=== PATIENT | male | born 1945 | race Caucasian/White ===

== ENCOUNTER → 2018-09-25 | Day surgery (SDC) | payer MEDICARE ==
--- NOTE | 2018-09-22 16:20 | Diagnostic Imaging Report ---
EXAMINATION: PA and lateral views of the chest. COMPARISON: None CLINICAL HISTORY: Preoperative study for orthopedic procedure DISCUSSION: Lines/tubes: None. Lungs: Calcified granuloma right midlung. Lungs are otherwise well-inflated and without focal consolidation, pleural effusion, or pneumothorax. Pleura: There is no pleural effusion or pneumothorax. Heart and mediastinum: The cardiomediastinal silhouette is normal. Bones and soft tissues: No acute bony abnormalities. 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 Degenerative changes in the thoracic spine IMPRESSION: No acute cardiopulmonary abnormalities. Signed by: Dr. Ashu Levine M.D. on 09/22/2018 4:17 PM
[2018-09-22 16:39] LABS: BASOPHILS # (AUTO) 0.1 (0.0-0.1); BASOPHILS % 0.5 % (0.0-1.0); EOSINOPHILS # (AUTO) 0.4 (0.0-0.4); EOSINOPHILS % 2.4 % (0.0-6.0); HEMATOCRIT 34.1 % (38.2-49.6); HEMOGLOBIN 10.9 g/dL (14.0-18.0); LYMPHOCYTES # (AUTO) 13.5 (1.0-3.2); LYMPHOCYTES % 75.2 % (18.0-39.1); MEAN CORPUSCULAR HEMOGLOBIN 29.6 pg (28-32); MEAN CORPUSCULAR VOLUME 92.7 fL (81-99); MONOCYTES # (AUTO) 0.8 (0.2-0.8); MONOCYTES % 4.6 % (4.4-11.3); NEUTROPHILS # (AUTO) 3.1 (2.1-6.9); NEUTROPHILS % 17.1 % (38.7-80.0); PLATELET COUNT 366 x10e3/uL (140-360); RED BLOOD COUNT 3.68 x10e6/uL (4.3-5.7); RED CELL DISTRIBUTION WIDTH 14.4 % (11.7-14.4)
[2018-09-22 21:03] LABS: EOSINOPHILS % (MANUAL) 3 % (0-7); LYMPHOCYTES % (MANUAL) 63 % (19-48); MONOCYTES % (MANUAL) 1 % (3.4-9.0); NEUTROPHILS % (MANUAL) 28 % (40-74); PLATELET ESTIMATE ADEQUATE; PLATELET MORPHOLOGY COMMENT NORMAL; RBC MORPHOLOGY COMMENT NORMAL; SMUDGE CELLS MODERATE
[~2018-09-25] MED LIST: AMLODIPINE BESYL5 MG PO; ASPIR 8181 MG PO; BUPIVACAINE HCL 0.5% INJ 30 ML VIAL INJ ONE; CALCIUM CARBON500 MG PO; CALCIUM500 MG PO; CITALOPRAM HBR20 MG PO; FISH OIL 1,0001 EAC2 PO; HYDROMORPHONE 2MG/ML 2 MG/ML ML ONE; IOPAMIDOL 610MG/1ML 300 MG/ML VIAL IV ONE; LIDOCAINE HCL 1% LOCAL INJ 20 ML VIAL ONE; MELOXICAM7.5 MG PO; METHOCARBAMOL PO; MIDAZOLAM HCL 2 MG/2 ML VIAL ONE; MORPHINE SULFAT30 M2 PO; MORPHINE SULFATE INJ 10 MG/ML ONE; MULTIVITAMINS1 EAC6 PO; NORCO 10-325 T1 EACH PO; OMEGA-31000 MG PO; PROPOFOL IV EMULSION 10 MG/ML 20 ML VIAL ONE; RIVAROXABAN PO; TRIAMCINOLONE ACET 40 MG/ML VIAL ONE; VITAMIN D400 UNIT PO; XARELTO20 MG PO
--- OUTSIDE RECORDS SUMMARY | 2018-09-25 05:11 | XMS REPORT ---
Author [facility] Address Unknown Phone Unavailable Care Team Providers Care Chemist Biological Name Role Phone FORTINO MORENO Unavailable Unavailable Payers Payer Name Policy Type Policy Number Effective Date Expiration Date Problems This patient has no known problems. Allergies, Adverse Reactions, Alerts Allergy Name Allergy Type Status Severity Reaction(s) Onset Date Inactive Date Treating Clinician Comments penicillin DA Active U 2018-05-11 00:00:00 penicillin DA Active U 2015-03-04 00:00:00 Medications This patient has no known medications. Results Test Description Test Time Test Comments Text Results Atomic Results Result Comments CHEST 2 VIEWS 2018-09-22 16:15:00 [place] [address] Patient Name: VERONIQUE SIMMONS MR #: [id number] : 1945 Age/Sex: 73/M Req #: [id number] Adm Physician: Ordered by: FORTINO MORENO MD Report #: [id number] Location: OR Room/Bed: Procedure: [id number] DX/CHEST 2 VIEWS Exam Date: 09/22/18 Exam Time: 1600 REPORT STATUS: Signed EXAMINATION: PA and lateral views of the chest. DOREEN RISON: None CLINICAL HISTORY: Preoperative study for orthopedic procedure DISCUSSION: Lines/tubes: None. Lungs: Calcified granuloma right midlung. Lungs are otherwise well-inflated and without focal consolidation, pleural effusion, or pneumothorax. Pleura: There is no pleural effusion or pneumothorax. Heart and mediastinum: The cardiomediastinal silhouette is normal. Bones and soft tissues: No acute bony abnormalities. 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 Degenerative changes in the thoracic spine IMPRESSION: No acute cardi opulmonary abnormalities. Signed by: Dr. Fortino Vanessa M.D. on 09/22/2018 4:17 PM Dictated By: FORTINO VANESSA MD [id number] Transcribed By: CASSIE on 09/22/18 6613 COPY TO: FORTINO MORENO MD
[2018-09-25 07:45] VITALS: BP 123/70
[2018-09-25 10:50] LABS: BODY FLUID COLOR RED
[2018-09-25 10:51] LABS: RBC,BODY FLUID 2129 cells/uL; WBC,BODY FLUID 50 cells/uL
[2018-09-25 10:59] LABS: EOSINOPHILS,BODY FLUID 5 %; LYMPHOCYTES,BODY FLUID 76 %; NEUTROPHILS,BODY FLUID 10 %; OTHER CELLS,BODY FLUID 4 %
[2018-09-25 11:18] LABS: MONO/MACROPHG,BODY FLUID 5 %
--- NOTE | 2018-09-25 12:27 | Operative Report ---
DATE OF PROCEDURE: 09/25/2018 SURGEON: Ashu Mims MD PREOPERATIVE DIAGNOSIS: Complications pertaining to left hip prosthesis. POSTOPERATIVE DIAGNOSIS: Complications pertaining to left hip prosthesis. PROCEDURE: Fluoroscopic guided left hip aspiration and injection. INDICATIONS: The patient is a 73-year-old gentleman, who has a painful left hip hemiarthroplasty. He has elevated inflammatory blood work. We plan on aspiration and possible injection. The risks and benefits have been discussed. He states he understands and wishes to proceed. PROCEDURE IN DETAIL: The patient was brought to the operating room and given a MAC anesthetic. His left hip was prepped and draped in a sterile manner. A preoperative time-out was performed. A C-arm image intensifier was used to pace an 18-gauge spinal needle into the hip joint. About 4 mL of blood-tinged synovial fluid was quickly removed. There was no alicja purulence. I elected to inject a mixture of Marcaine and 40 mg of Kenalog. The needle was retrieved and a Band-Aid was applied. He was transported to the recovery room in stable condition. Ashu Mims MD DR/MODL /[id number]
[2018-09-25 12:46] LABS: BODY FLUID APPEARANCE SL.CLOUDY; BODY FLUID TYPE SYNOVIAL
== END | disposition home or self-care (01) ==
LOC: OR 05:08
PROVIDERS: ATTEND Specialist
DX: T84.84XA Pain due to internal orthopedic prosthetic devices, implants and grafts, initial encounter (principal); Z96.642 Presence of left artificial hip joint; E78.5 Hyperlipidemia, unspecified; I10 Essential (primary) hypertension; C91.10 Chronic lymphocytic leukemia of B-cell type not having achieved remission; R60.0 Localized edema; I73.9 Peripheral vascular disease, unspecified; I25.2 Old myocardial infarction; Z01.810 Encounter for preprocedural cardiovascular examination; Z01.812 Encounter for preprocedural laboratory examination; Z01.818 Encounter for other preprocedural examination
CPT/HCPCS: 20610; 36415 ×2; 71046; 77002; 85025; 87070; 87071; 87075; 87102; 87205; 87206; 89051; 93005; J1170; J2250; J2270; J2704; J3301; Q9967; 27093; J2001

== ENCOUNTER 2018-11-07 06:20 | Inpatient (IN) | payer MEDICARE ==
[~2018-11-07] VITALS: Ht 175.3 cm; Wt 87.1 kg
[~2018-11-07 06:20] MED LIST changes: -BUPIVACAINE HCL 0.5% INJ 30 ML VIAL INJ ONE; -HYDROMORPHONE 2MG/ML 2 MG/ML ML ONE; -IOPAMIDOL 610MG/1ML 300 MG/ML VIAL IV ONE; -LIDOCAINE HCL 1% LOCAL INJ 20 ML VIAL ONE; -MIDAZOLAM HCL 2 MG/2 ML VIAL ONE; -MORPHINE SULFATE INJ 10 MG/ML ONE; -PROPOFOL IV EMULSION 10 MG/ML 20 ML VIAL ONE; -TRIAMCINOLONE ACET 40 MG/ML VIAL ONE; +VIT B12 PO
[2018-11-07] MEDS ORDERED: CELECOXIB 200 MG CAP ONE (07:02)
[2018-11-07] MEDS ORDERED: DEXAMETHASONE SOD PHOS 10 MG/1 ML VIAL ONE (07:02)
[2018-11-07] MEDS ORDERED: VANCOMYCIN 1GM/NS 250 ML 250 ML ONE (07:02)
[2018-11-07] MEDS ORDERED: GABAPENTIN 300 MG CAP ONE (07:02)
[2018-11-07] MEDS ORDERED: VANCOMYCIN HCL 1,000 MG ONE (07:09)
[2018-11-07] MEDS ORDERED: SODIUM CHLORIDE 0.9% 500ML 500 ML ONE (07:10)
[2018-11-07] MEDS ORDERED: TRANEXAMIC ACID 1,000 MG/10 ML ML ONE (07:10)
[2018-11-07] MEDS ORDERED: BACITRACIN 50,000 UNIT VIAL ONE (07:11)
[2018-11-07] MEDS ORDERED: ROPIVACAINE 246.25 MG, EPINEPHRINE HCL 1:1000 1ML 0.5 MG, CLONIDINE HCL 0.08 MG, KETORO... INJ ONE ×5 (08:00)
[2018-11-07] MEDS ORDERED: BUPIVACAINE HCL 0.5% INJ 30 ML VIAL INJ ONE (08:58)
[2018-11-07] MEDS: SODIUM CHLORIDE 0.9% 1000ML 1,000 ML IV SCH ×2 (10:51→21:07)
[2018-11-07] MEDS ORDERED: ACETAMINOPHEN 1000 MG/100 ML 100 ML IV ONE (10:57)
[2018-11-07] MEDS ORDERED: DOCUSATE SODIUM 100 MG CAP PO PRN (11:00)
[2018-11-07] MEDS ORDERED: ACETAMINOPHEN 650 MG SUPP PR PRN (11:00)
[2018-11-07] MEDS ORDERED: DIPHENHYDRAMINE HCL INJ 50 MG/ML VIAL IM/IV PRN (11:00)
[2018-11-07] MEDS ORDERED: ZOLPIDEM TARTRATE 5 MG TAB PO PRN (11:00)
[2018-11-07] MEDS ORDERED: PROMETHAZINE HCL (IM) 25 MG/ML VIAL INJ PRN (11:00)
[2018-11-07] MEDS ORDERED: ONDANSETRON HCL INJ 2MG/ML 2ML 2 MG/ML VIAL IV PRN (11:00)
[2018-11-07] MEDS ORDERED: HYDROCODONE/APAP 5MG-325MG TAB PO PRN (11:00)
[2018-11-07] MEDS: ACETAMINOPHEN 1000 MG/100 ML IV SCH ×4 (12:00→23:58)
--- NOTE | 2018-11-07 12:34 | NUR ---
pt alert resp even, and unlabored at this time no distress noted, pt arrive via stretcher, pt able to make needs known, pt has abductor pillow in place, pt oriented to room and call light, bed in lowest position, bed rails up x2. call light in reach.
[2018-11-07 12:43] VITALS: BP 119/77
[2018-11-07 12:52] VITALS: BP 119/77
--- NOTE | 2018-11-07 14:02 | Diagnostic Imaging Report ---
Exam: AP pelvis and single view of the left hip, portable technique. History: Hip surgery Comparison: None available Findings: Left femoral prosthesis present in good position. Surgical kamlesh and soft tissue air compatible with the recent surgery. Impression: Status post hip arthroplasty. Signed by: Dr. Yair Florentino DO on 11/07/2018 1:58 PM
[2018-11-07 15:48] LABS: RBC,BODY FLUID 27423 cells/uL; WBC,BODY FLUID 792 cells/uL
[2018-11-07 15:50] LABS: BODY FLUID APPEARANCE CLOUDY; BODY FLUID COLOR RED; BODY FLUID TYPE SYNOVIAL
[2018-11-07 16:05] VITALS: BP 118/70
[2018-11-07] MEDS: ASPIRIN 325 MG TAB PO SCH (17:05)
[2018-11-07] MEDS: CELECOXIB 100 MG CAP PO SCH (17:15)
[2018-11-07] MEDS: HYDROCODONE/APAP 7.5MG-325MG 1 EA TAB PO PRN (17:20)
[2018-11-07] MEDS ORDERED: EPHEDRINE SULFATE INJ 50 MG/10 ML SYR ONE (17:49)
[2018-11-07] MEDS ORDERED: PROPOFOL IV EMULSION 10 MG/ML 20 ML VIAL ONE (17:49)
[2018-11-07] MEDS ORDERED: LIDOCAINE HCL 2% LOCAL INJ 5 ML SDV VIAL INJ ONE (17:49)
[2018-11-07 18:19] LABS: LYMPHOCYTES,BODY FLUID 69 %; MONO/MACROPHG,BODY FLUID 15 %; NEUTROPHILS,BODY FLUID 14 %; OTHER CELLS,BODY FLUID 2 %
--- NOTE | 2018-11-07 19:21 | NUR ---
REPORT GIVEN TO ONCOMING NURSE, PT STABLE AT THIS TIME.
--- NOTE | 2018-11-07 19:23 | NUR ---
REPORT GIVEN TO ONCOMING NURSE, PT STABLE AT THIS TIME.
--- NOTE | 2018-11-07 19:25 | NUR ---
Received patient in bed in no acute distress, patient is alert and oriented, safety and fall precautions maintained as per hospital protocol: bed in lowest position and locked, needed items beside bed and call meza placed close to patient, patient is currently stable, will continue to monitor.
[2018-11-07] MEDS ORDERED: MIDAZOLAM HCL 2 MG/2 ML VIAL ONE (19:56)
[2018-11-07] MEDS ORDERED: FENTANYL CITRATE/PF 100MCG/2 ML INJ ONE (19:56)
[2018-11-07 20:04] VITALS: BP 133/67
--- NOTE | 2018-11-07 20:14 | Operative Report ---
DATE OF PROCEDURE: 11/07/2018 SURGEON: Ashu Mims MD ASSOCIATE PROFESSOR OF BIBLICAL STUDIES: Arron Grande, Certified PA. PREOPERATIVE DIAGNOSIS: Mechanical complications of left total hip arthroplasty. POSTOPERATIVE DIAGNOSIS: Mechanical complications of left total hip arthroplasty. PROCEDURE: Revision left total hip arthroplasty. INDICATIONS: The patient is a 73-year-old gentleman, who has clinic signs and symptoms consistent with an aseptic failure of his left hip hemiarthroplasty. This was performed several years ago. He has had progressive pain. He has gone through a full inflammatory workup including aspiration. This was negative. The risks and benefits of a revision have been explained. The added challenges for this type of procedure over a primary procedure were discussed. He states he understands and wishes to proceed. PROCEDURE IN DETAIL: The patient was brought to the operating room and given a spinal anesthetic. He received prophylactic antibiotics and tranexamic acid in the holding area. He was positioned in the right lateral decubitus position. His left hip was prepped and draped in a sterile manner. A preoperative time-out was performed. The previous posterior incision was utilized, but extended proximally and distally. Subcutaneous stitches were noted to be Prolene. These were all removed. The incision was carried down through the deep tissue. A self-retaining Charnley retractor was placed. The gluteus destiny insertion had to be released for better mobilization. The iliopsoas tendon was released. The hip was more mobilized. The posterior capsule and portions of the short external rotators were released. The hip was carefully dislocated. The femoral stem was noted to be grossly loose. The ball of the unipolar hemiarthroplasty was removed. The trunnion was removed. The proximal portion of the stem was cleared of all soft tissue impingement. A slap hammer attached to the stem was used to remove the stem. The femoral canal was inspected and debrided. All fibrinous membrane was removed. A reamer with a cutting tip was used to punch through the distal pedestal. The femoral canal was then sequentially and carefully reamed up to 18 mm. This provided good endosteal contact in a firm stop. A Simba Biomet revision system was used. An 18 mm x 190 mm stem was impacted into place. Proximal reaming up to a size B proximal body was performed. Attention was then directed towards the socket. Additional soft tissue releases were necessary to mobilize and visualize the socket. The socket was then debrided of all surrounding soft tissue. A large anterior scar formation was debrided. The socket was then sequentially reamed up to 57 mm. This accomplished hemispherical bleeding cancellous bone. A 58 mm osteoTi socket was then impacted into place. Good fixation was obtained. Fixation was augmented with a 25 mm screw placed into the ilium. A trial liner was placed. Trial reductions were performed. I elected to use a +3 mm femoral head. The hip was put through an arc of motion and felt to have good stability and gnosticism of limb length. The trial components were then removed. A proximal body was placed and locked into place. This gave the stem and proximal body a 260 mm total length. The +3 mm ceramic head with the associated trunnion was seated onto the stem. A highly cross-linked polyethylene liner with no posterior elevation had been seated. Care was taken to make sure that there was no evidence of soft tissue interposition. The hip had been thoroughly irrigated on numerous occasions throughout the case with a shower tip pulsatile lavage and a spray mixture of vancomycin and polymyxin spray. Likewise, cultures have been taken upon entry of the hip. There were no signs of purulence. The hip was reduced for a final time. What was left of the posterior capsule was repaired with interrupted #2 Ethibond. What was left of the iliotibial band and gluteal fascia was also closed with #2 Ethibond. The skin was closed with subcuticular Vicryl and kamlesh. A sterile Aquacel bandage was applied. The patient was returned to the supine position. He was transported to the recovery room in stable condition. Blood loss was approximately 200 mL. All needle and sponge counts were correct. Ashu Mims MD DR/REJI /[id number]
[2018-11-07 21:00] VITALS: BP 133/67
[2018-11-07] MEDS: VANCOMYCIN 1GM/NS 250 ML 250 ML IV SCH (21:07)
[2018-11-08] VITALS (7 sets, daily range): BP systolic 128–196; BP diastolic 72–86
[2018-11-08] MEDS: HYDROCODONE/APAP 7.5MG-325MG 1 EA TAB PO PRN ×5 (03:15→23:02)
[2018-11-08] MEDS: ACETAMINOPHEN 1000 MG/100 ML IV SCH (05:41)
[2018-11-08 06:09] LABS: HEMATOCRIT 30.8 % (38.2-49.6); HEMOGLOBIN 10.2 g/dL (14.0-18.0)
[2018-11-08] MEDS: SODIUM CHLORIDE 0.9% 1000ML 1,000 ML IV SCH ×3 (06:51→19:40)
--- NOTE | 2018-11-08 06:54 | NUR ---
Patient condition throughout the night was stable, patient endorsed to next shift for continuity of care.
--- NOTE | 2018-11-08 08:31 | Consultation ---
DATE OF CONSULTATION: 11/08/2018 REASON FOR CONSULTATION: Medical management. HISTORY OF PRESENT ILLNESS: The patient is a 73-year-old gentleman, status post mechanical complications of his left total hip arthroplasty, status post surgery, who is doing well postoperatively with minimal pain. He denies any fever, chills, nausea, vomiting, headache, shortness of breath, or chest pain on review of systems. PAST MEDICAL HISTORY: Significant for CLL, depression, coronary artery disease, hyperlipidemia, hypertension, and osteoarthritis. MEDICATIONS: See MAR. ALLERGIES: PENICILLIN AND IODINE. SOCIAL HISTORY: Drinks occasionally. Nonsmoker. He is . Lives at home with his . FAMILY HISTORY: Noncontributory. PHYSICAL EXAMINATION: VITAL SIGNS: Temperature 95.7, pulse 62, blood pressure 149/72, sats 98% on room air. GENERAL: In no apparent distress, lying in bed. NECK: Supple. No lymphadenopathy. CARDIOVASCULAR: Regular rate and rhythm. LUNGS: Clear to auscultation bilaterally. ABDOMEN: Good bowel sounds. Soft and nontender. EXTREMITIES: No clubbing or cyanosis. Left hip is bandaged with no seepage. NEUROLOGIC: Nonfocal. ASSESSMENT AND PLAN: 1. Left hip pain. We will continue with postoperative care. 2. Anemia. We will check a CBC. 3. Hypertension. We will continue with his home medications. 4. Coronary artery disease. We will continue his anticoagulation after we know how his CBC is doing. Please see hospital chart for full details. MD SHARONA Stockton/REJI /[id number]
[2018-11-08] MEDS: ASPIRIN 325 MG TAB PO SCH ×2 (08:40→16:25)
[2018-11-08] MEDS: CELECOXIB 100 MG CAP PO SCH (08:40)
[2018-11-08] MEDS: VANCOMYCIN 1GM/NS 250 ML 250 ML IV SCH (09:12)
[2018-11-08] MEDS ORDERED: ACETAMINOPHEN 1000 MG/100 ML IV PRN (11:00)
[2018-11-08] MEDS ORDERED: ONDANSETRON HCL 4 MG ORAL DISINTEGRATING TAB PO PRN (14:15)
--- NOTE | 2018-11-08 14:35 | NUR ---
Pt is in bed resting, A&Ox3, Resp WNL. IV to R AC, patent IV fluids being administered at this time. C/o pain to L hip, surgical site. Dressing applied to L hip, CDI, no redness or swelling to site. Able to ambulate with assistance, walker provided to continue with home health upon discharge. Call light within reach, bed in lowest position. Pt aware to call when in need of assistance.
[2018-11-08] MEDS: ONDANSETRON HCL INJ 2MG/ML 2ML 2 MG/ML VIAL IV PRN ×2 (16:03→21:40)
[2018-11-08] MEDS: CELECOXIB 200 MG CAP PO SCH (16:26)
--- NOTE | 2018-11-08 19:19 | NUR ---
WALKING ROUNDS PERFORMED, RECEIVED PT LAYING SEMI FOWLERS IN BED, AAOX3, RR EVEN AND NON-LABORED, ON ROOM AIR. NO S/SX OF DISTRESS VISUALIZED, PT REPORTS FEELING NAUSEATED. LEFT HIP AQUACEL DRESSING CDI. LEFT PT LAYING SEMI FOWLERS IN BED, BED IN LOW LOCKED POSITION, SIDE RAILS UPX2, CALL LIGHT AND PHONE WITHIN REACH.
[2018-11-08] MEDS: KETOROLAC TROMETHAMINE 30 MG/ML VIAL IV PRN (19:40)
--- NOTE | 2018-11-08 19:40 | NUR ---
PT STILL REPORTS FEELING NAUSEATED, NOT YET TIME FOR ZOFRAN BUT PT REFUSING PHENERGAN. WILL CONTINUE TO MONITOR.
--- NOTE | 2018-11-08 20:55 | NUR ---
PT STILL REPORTS FEELING NAUSEATED, NOT YET TIME FOR ZOFRAN BUT PT REFUSING PHENERGAN. WILL CONTINUE TO MONITOR.
--- NOTE | 2018-11-08 22:45 | NUR ---
PT REPORTS HE VOMITED. 50ML EMESIS TO EMESIS BAG NOTED. AT 2300 WHEN PHENERGAN WAS TAKEN TO ROOM PT REPORTS HE DOES NOT WANT THE MEDICATION RIGHT NOW, WILL CONTINUE TO WAIT. PT REQUESTING PAIN MEDICATION. PROVIDED CRACKERS WITH NORCO.
[2018-11-08] MEDS ORDERED: SODIUM CHLORIDE 0.9% 50ML 50 ML ONE (22:50)
[2018-11-09] VITALS: BP 140/74
[2018-11-09] MEDS: SODIUM CHLORIDE 0.9% 1000ML 1,000 ML IV SCH (02:51)
[2018-11-09] MEDS: KETOROLAC TROMETHAMINE 30 MG/ML VIAL IV PRN ×2 (03:23→09:23)
[2018-11-09 04:00] VITALS: BP 193/77
[2018-11-09] MEDS ORDERED: CLONIDINE HCL 0.1 MG TAB PO PRN (05:00)
[2018-11-09] MEDS ORDERED: ALPRAZOLAM 0.25 MG TAB PO PRN (05:00)
[2018-11-09] MEDS: HYDROCODONE/APAP 7.5MG-325MG 1 EA TAB PO PRN (05:07)
--- NOTE | 2018-11-09 05:31 | NUR ---
ALERTED TO PATIENTS ROOM WITH BED ALARM SOUNDING. PT UNSTEADY ON FEET AMBULATING TO BATHROOM. PT REFUSING TO USE WALKER AT THIS TIME, TEACHING PERFORMED ON PT CALLING FOR ASSISTANCE.
[2018-11-09 06:15] LABS: HEMATOCRIT 29.6 % (38.2-49.6); HEMOGLOBIN 9.7 g/dL (14.0-18.0)
[2018-11-09 07:55] VITALS: BP 120/61
[2018-11-09] MEDS: CELECOXIB 200 MG CAP PO SCH (08:36)
[2018-11-09] MEDS: ASPIRIN 325 MG TAB PO SCH (08:36)
[2018-11-09] MEDS ORDERED: ASPIR 8181 MG PO (08:44)
[2018-11-09 09:01] VITALS: BP 120/61
[2018-11-09 09:05] VITALS: BP 120/61
--- NOTE | 2018-11-09 09:33 | NUR ---
Nutrition Screen Note RD Recommendation for Physician: -Rec cardiac diet as medically appropriate Plan of Care: RD following, monitoring for tolerance and adequacy Nutrition reason for involvement: Nutrition Risk Trigger MST Primary Diagnose(s): mechanical complications of left total hip arthroplasty PMH: CLL, depression, coronary artery disease, hyperlipidemia, hypertension, and osteoarthritis. Ht: 69in Wt: 192.05lb BMI: 28.4kg/m2 IBW: 160lb RD Assessment: (11/09) Chart reviewed. Labs and meds reviewed. 73yo M, who was admitted for mechanical complications of his left total hip arthroplasty. Visited pt in the room. Pt reported fair appetite without any nausea or vomiting. PCT recorded 50-100% meal since admission. Normal BM. Pt denies any chewing or swallowing difficulty. Weight has been stable. Will continue to monitor and follow. Current Diet: regular diet Malnutrition Evaluation (11/09/2018) The patient does not meet criteria for a specified degree of malnutrition at this time. Will re-evaluate at follow-up as appropriate. Diet Education Needs Assessment: Diet education not indicated. Nutrition Care Level: low Signed: Judy Friedman, MS, RD, LD
== END 2018-11-09 09:46 | disposition home health service (06) | DRG 468 ==
LOC: OR 06:20 → PACU V 10:55 → MED/SURG 12:32
PROVIDERS: ADMIT Specialist; ATTEND Specialist
PROC: 0SPS0JZ Removal of Synthetic Substitute from Left Hip Joint, Femoral Surface, Open Approach (ICD-10-PCS; 2018-11-07)
PROC: 0SRS039 Replacement of Left Hip Joint, Femoral Surface with Ceramic Synthetic Substitute, Cemented, Open Approach (ICD-10-PCS; principal; 2018-11-07 08:30)
DX: T84.091A Other mechanical complication of internal left hip prosthesis, initial encounter (principal); Z85.6 Personal history of leukemia; I25.2 Old myocardial infarction; E78.5 Hyperlipidemia, unspecified; I10 Essential (primary) hypertension; Z86.73 Personal history of transient ischemic attack (TIA), and cerebral infarction without residual deficits; F41.9 Anxiety disorder, unspecified; D64.9 Anemia, unspecified; I25.10 Atherosclerotic heart disease of native coronary artery without angina pectoris; Z79.01 Long term (current) use of anticoagulants
CPT/HCPCS: 36415; 72170; 85014; 85018; 86850; 86900; 86920; 87071; 87075; 87205; 89051; C1713; C1776; J0171; J1100; J1885; J2001; J2250; J2405; J2550; J2795; J3010; J3370; J7030; J7040; Q0162

== ENCOUNTER 2019-07-23 08:18 | Observation (INO) | payer BC, MEDICARE ==
[~2019-07-23] VITALS: Ht 172.7 cm; Wt 91.4 kg
[2019-07-23] MEDS: SODIUM CHLORIDE 0.9% 1000ML 1,000 ML IV SCH ×2 (05:15→12:05)
[~2019-07-23 08:18] MED LIST changes: +ROPIVACAINE 246.25 MG, EPINEPHRINE HCL 1:1000 1ML 0.5 MG, CLONIDINE HCL 0.08 MG, KETORO... INJ ONE; +[UNRECOGNIZED DRUG - OTHER] PO
[2019-07-23] MEDS ORDERED: GABAPENTIN 300 MG CAP ONE (08:49)
[2019-07-23] MEDS ORDERED: VANCOMYCIN 1GM/NS 250 ML 250 ML ONE (08:49)
[2019-07-23] MEDS ORDERED: DEXAMETHASONE SOD PHOS 10 MG/1 ML VIAL ONE (08:49)
[2019-07-23] MEDS ORDERED: CELECOXIB 200 MG CAP ONE (08:49)
[2019-07-23] MEDS ORDERED: VANCOMYCIN HCL 1,000 MG ONE (09:38)
[2019-07-23] MEDS ORDERED: SODIUM CHLORIDE 0.9% 500ML 500 ML ONE (09:38)
[2019-07-23] MEDS ORDERED: BACITRACIN 50,000 UNIT VIAL ONE (09:39)
[2019-07-23] MEDS ORDERED: TRANEXAMIC ACID 1,000 MG/10 ML ML ONE (09:39)
[2019-07-23] MEDS ORDERED: ACETAMINOPHEN 650 MG SUPP PR PRN (12:15)
[2019-07-23] MEDS ORDERED: HYDROCODONE/APAP 5MG-325MG TAB PO PRN (12:15)
[2019-07-23] MEDS ORDERED: PROMETHAZINE HCL (IM) 25 MG/ML VIAL IM PRN (12:15)
[2019-07-23] MEDS ORDERED: DIPHENHYDRAMINE HCL INJ 50 MG/ML VIAL IM/IV PRN (12:15)
[2019-07-23] MEDS ORDERED: ONDANSETRON HCL INJ 2MG/ML 2ML 2 MG/ML VIAL IV PRN (12:15)
[2019-07-23] MEDS ORDERED: KETOROLAC TROMETHAMINE 30 MG/ML VIAL IV PRN (12:15)
[2019-07-23] MEDS ORDERED: DOCUSATE SODIUM 100 MG CAP PO PRN (12:15)
[2019-07-23] MEDS ORDERED: FENTANYL CITRATE/PF 100MCG/2 ML INJ ONE ×2 (12:40→13:57)
[2019-07-23] MEDS ORDERED: HYDROMORPHONE 1MG/1ML INJ ONE (13:14)
[2019-07-23] MEDS ORDERED: MIDAZOLAM HCL 2 MG/2 ML VIAL ONE (13:57)
--- NOTE | 2019-07-23 13:59 | Diagnostic Imaging Report ---
EXAMINATION: KNEE LEFT 1-2 VIEWS INDICATION: Postoperative COMPARISON: None FINDINGS: Portable AP and lateral radiographs of the left knee demonstrate immediate postoperative findings of left total knee replacement. Alignment appears anatomic. No unexpected fracture. Postoperative subcutaneous soft tissue emphysema. Surgical skin kamlesh in place. IMPRESSION: Anatomic alignment status post left total knee replacement. Signed by: Hero Hunt MD on 07/23/2019 1:56 PM
[2019-07-23] MEDS ORDERED: HYDROCODONE/APAP 7.5MG-325MG 1 EA TAB ONE (15:56)
--- NOTE | 2019-07-23 16:22 | NUR ---
DR LR OFFICE PREARRANGED FOLLOWING DISCHARGE PLAN OF: RETURNING HOME WITH [address], [facility] [address] HOME HEALTH WITH [facility] CONFIRMED WITH JAN [phone] DME 3 IN ONE COMMODE, CPM AND ROLLING WALKER WITH WHEELS. PROVIDED BY THERAPY [employer] [phone] MARKUS VEGA SIGNED AND ON CHART COPY LEFT WITH PATIENT GAVE CARD FOR QUESTIONS AND OR CONCERNS.
[2019-07-23] MEDS ORDERED: CELECOXIB 100 MG CAP PO SCH (17:00)
[2019-07-23 17:20] VITALS: BP 112/64
[2019-07-23 17:22] VITALS: BP 112/64
[2019-07-23] MEDS: ASPIRIN 325 MG TAB PO SCH (17:43)
[2019-07-23] MEDS: CELECOXIB 200 MG CAP PO SCH (17:43)
[2019-07-23] MEDS ORDERED: PROPOFOL IV EMULSION 10 MG/ML 20 ML VIAL ONE (18:09)
[2019-07-23] MEDS ORDERED: ACETAMINOPHEN 1000 MG/100 ML IV ONE (18:09)
[2019-07-23] MEDS ORDERED: ONDANSETRON HCL INJ 2MG/ML 2ML 2 MG/ML VIAL ONE (18:09)
[2019-07-23] MEDS ORDERED: LIDOCAINE HCL 2% LOCAL INJ 5 ML SDV VIAL INJ ONE (18:09)
[2019-07-23] MEDS ORDERED: SEVOFLURANE INHAL SOLN 250 ML PEN BTL ONE (18:09)
[2019-07-23] MEDS ORDERED: EPINEPHRINE HCL 1:1000 1ML 1 MG/ML AMP ONE (18:11)
[2019-07-23] MEDS ORDERED: BUPIVACAINE 0.25% 30ML SDV INJ ONE (18:11)
[2019-07-23 18:43] VITALS: BP 133/89
[2019-07-23 20:00] VITALS: BP 134/81
[2019-07-23 21:00] VITALS: BP 116/61
[2019-07-23] MEDS ORDERED: ZOLPIDEM TARTRATE 5 MG TAB PO PRN (21:00)
--- NOTE | 2019-07-23 21:23 | NUR ---
Received patient to unit. In stable condition, no s/s of distress at this time. All safety measures in place. Will continue to monitor.
[2019-07-23 21:28] VITALS: BP 116/61
[2019-07-23] MEDS: VANCOMYCIN 1GM/NS 250 ML 250 ML IV SCH (21:33)
[2019-07-24] VITALS: BP 128/63
[2019-07-24 04:00] VITALS: BP 160/74
[2019-07-24] MEDS: SODIUM CHLORIDE 0.9% 1000ML 1,000 ML IV SCH ×2 (05:15→08:05)
--- NOTE | 2019-07-24 05:29 | Consultation ---
DATE OF CONSULTATION: 07/24/2019 REASON FOR CONSULTATION: Postop medical management. HISTORY OF PRESENT ILLNESS: The patient is a 74-year-old gentleman, status post left total knee arthroplasty for end-stage osteoarthritis. He is doing very well postoperatively with minimal pain in the left knee. Denies any chest pain, fever, chills, headaches, shortness of breath, nausea, vomiting or dizziness. PAST MEDICAL HISTORY: Significant for CLL, coronary artery disease, hyperlipidemia, hypertension, depression. MEDICATIONS: See MAR. ALLERGIES: PENICILLIN, IODINE. SOCIAL HISTORY: , works full-time. Nonsmoker. FAMILY HISTORY: Noncontributory at this time. PHYSICAL EXAMINATION: VITAL SIGNS: Temperature 96.2, pulse 82, blood pressure 128/63, sats 96% on room air. GENERAL: No apparent distress, lying in bed. NECK: Supple. CARDIOVASCULAR: Regular rate and rhythm. LUNGS: Clear to auscultation bilaterally. ABDOMEN: Good bowel sounds. Soft, nontender. EXTREMITIES: No clubbing, cyanosis. NEUROLOGIC: Nonfocal. ASSESSMENT AND PLAN: 1. Left knee pain. Continue with physical therapy and pain control. 2. Anemia, check a CBC. 3. Hypertension. Restart his medicines at discharge. 4. Coronary artery disease. We will restart his medications at discharge. Please see hospital chart for full details. MD SHARONA Stockton/REJI /[id number]
[2019-07-24 06:19] LABS: HEMATOCRIT 35.1 % (38.2-49.6); HEMOGLOBIN 11.1 g/dL (14.0-18.0)
--- NOTE | 2019-07-24 07:02 | NUR ---
Bedside report given to day nurse. Patient awake and resting in ed, no s/s of distress at this time. All safety measures in place.
--- NOTE | 2019-07-24 07:10 | NUR ---
RCD PT AT BED PT IS ALERT AND ORIENTED RESTING ON BED NO SIGNS OF ANY DISTRESS NOTED IV PATENT BED LOW AND LOCKED CALL LIGHT IN REACH
[2019-07-24 08:00] VITALS: BP 173/77
[2019-07-24 08:37] VITALS: BP 173/77
[2019-07-24] MEDS: CELECOXIB 200 MG CAP PO SCH (09:00)
[2019-07-24] MEDS: VANCOMYCIN 1GM/NS 250 ML 250 ML IV SCH (09:00)
[2019-07-24] MEDS: ASPIRIN 325 MG TAB PO SCH (09:00)
[2019-07-24] MEDS: HYDROCODONE/APAP 7.5MG-325MG 1 EA TAB PO PRN ×2 (10:20→13:48)
[2019-07-24 12:00] VITALS: BP 152/86
--- NOTE | 2019-07-24 15:47 | NUR ---
PATIENT WENT HOME IN SAFE CONDITION WITH HIS
[2019-07-24 16:00] VITALS: BP 162/84
[2019-07-24] MEDS ORDERED: ACETAMINOPHEN 1000 MG/100 ML IV PRN (18:00)
--- NOTE | 2019-07-24 18:33 | Operative Report ---
DATE OF PROCEDURE: 07/23/2019 SURGEON: Ashu Mims MD TECHNICIAN SUPPORT ENGINEER: Arron Grande, certified PA. PREOPERATIVE DIAGNOSIS: Severe valgus osteoarthritis, left knee. POSTOPERATIVE DIAGNOSIS: Severe valgus osteoarthritis, left knee. PROCEDURE: Left total knee arthroplasty with lateral release. INDICATIONS: The patient is a 74-year-old gentleman with severe valgus arthritis of his left knee. He has failed conservative management and would like to proceed with a left total knee replacement. The risks and benefits have been discussed. The recovery has been explained. He states he understands and wishes to proceed. PROCEDURE IN DETAIL: The patient was brought to the operating room and placed under general anesthetic. He received prophylactic antibiotics, a regional block, and tranexamic acid in the holding area. His left lower extremity was prepped and draped in a sterile manner. A preoperative time-out was performed. The extremity was exsanguinated and a proximal tourniquet was inflated to 300 mmHg. An anterior approach with a medial parapatellar arthrotomy was performed. A limited medial dissection was performed due to the valgus deformity. The knee was brought up into flexion with the patella everted. It was noted that the quadriceps were quite tight even at the beginning of the case. The anterior cruciate ligament was chronically deficient. Retractors were placed for appropriate visualization of the proximal tibia. An extramedullary cutting guide was used to resect the proximal tibia. The cut was referenced off the least affected medial compartment. The tibial base plate was a size 6. Throughout the case, a Chairez and Nephew posterior stabilized Legion knee system was used. The central fin punch was impacted and attention was directed towards the distal femur. An intramedullary cutting guide was used to resect the distal femur in 6 degrees of valgus and rotation referencing off a combination of landmarks including Whitesides line, the epicondylar axis, and the posterior condyles. Some posterior femoral hypoplasia in the lateral condyle was taken into account. The femoral component was a size 7. The anterior, posterior and notch cuts were made. A lamina case specialist was placed into the knee. A #11 blade surgical knife was used to balance the knee releasing the lateral soft tissue. An 11 mm posterior stabilized tibial insert provided appropriate soft tissue balancing in full extension and 90 degrees of flexion. The patella was resurfaced with a 35 mm x 7.5 mm patellar button. The thickness was checked before and after. It was approximately 24 mm prior to resurfacing. The 9 mm patellar insert really exacerbated the quadriceps tightness. I elected to use a 7.5 mm in order to avoid overstuffing the patellofemoral compartment. A lateral retinacular release was also necessary to improve patellar tracking. The trial implants were then all removed. A 100 mL premixed pericapsular KELLY injection was placed into the surrounding soft tissue. The knee was thoroughly irrigated with a shower tip pulsatile lavage. The components were then cemented into place using a single mix of high viscosity Biomet cement preloaded with antibiotics. Care was taken to remove all extravasated cement. The wound was further irrigated while the cement cured. The arthrotomy was then closed after sprinkling 500 mg of vancomycin powder into the deep wound. The knee was put through flexion and extension to ensure a secure closure. The skin was closed with subcuticular Vicryl and kamlesh. A sterile Aquacel bandage was applied. The patient was extubated and transported to the recovery room in stable condition. Blood loss was minimal. All needle and sponge counts were correct. Ashu Mims MD DR/REJI /[id number]
== END 2019-07-24 15:58 | disposition home health service (06) ==
LOC: OR 08:18 → PACU V 12:52 → IMCU 16:04 → MED/SURG 20:51
PROVIDERS: ADMIT Specialist; ATTEND Specialist
DX: M17.0 Bilateral primary osteoarthritis of knee (principal); C91.10 Chronic lymphocytic leukemia of B-cell type not having achieved remission; I10 Essential (primary) hypertension; E78.5 Hyperlipidemia, unspecified; I73.9 Peripheral vascular disease, unspecified
CPT/HCPCS: 27447; 36415; 73560; 85014; 85018; 86850; 86900; 86920; 97116; 97139; 97161; 97530; C1713; G0378 ×2; J0131; J0171; J1100; J1170; J1885; J2001; J2250; J2405; J2704; J2795; J3010; J3370 ×3; J7030 ×2; J7040

== ENCOUNTER → 2019-10-05 | Day surgery (SDC) | payer MEDICARE, OTHER ==
[2019-10-02 11:40] LABS: BASOPHILS # (AUTO) 0.1 (0.0-0.1); BASOPHILS % 0.5 % (0.0-1.0); EOSINOPHILS # (AUTO) 0.2 (0.0-0.4); EOSINOPHILS % 1.7 % (0.0-6.0); HEMATOCRIT 38.7 % (38.2-49.6); HEMOGLOBIN 11.9 g/dL (14.0-18.0); LYMPHOCYTES # (AUTO) 10.4 (1.0-3.2); MEAN CORPUSCULAR HEMOGLOBIN 28.5 pg (28-32); MEAN CORPUSCULAR HGB CONC 30.7 g/dL (31-35); MEAN CORPUSCULAR VOLUME 92.8 fL (81-99); MONOCYTES # (AUTO) 0.6 (0.2-0.8); MONOCYTES % 4.3 % (4.4-11.3); NEUTROPHILS # (AUTO) 2.4 (2.1-6.9); NEUTROPHILS % 17.4 % (38.7-80.0); PLATELET COUNT 239 x10e3/uL (140-360); RED BLOOD COUNT 4.17 x10e6/uL (4.3-5.7); RED CELL DISTRIBUTION WIDTH 14.3 % (11.7-14.4)
[2019-10-02 12:38] LABS: EOSINOPHILS % (MANUAL) 1 % (0-7); LYMPHOCYTES % (MANUAL) 71 % (19-48); MONOCYTES % (MANUAL) 2 % (3.4-9.0); NEUTROPHILS % (MANUAL) 21 % (40-74); SMUDGE CELLS FEW
[2019-10-02 12:40] LABS: PLATELET ESTIMATE ADEQUATE; PLATELET MORPHOLOGY COMMENT RARE EDTA CLUMPING; RBC MORPHOLOGY COMMENT NORMAL
[~2019-10-05] MED LIST changes: +FLOMAX0.4 MG PO; +MIDAZOLAM HCL 2 MG/2 ML VIAL ONE; +OMEPRAZOLE40 MG PO; +PROPOFOL IV EMULSION 10 MG/ML 20 ML VIAL ONE; -ROPIVACAINE 246.25 MG, EPINEPHRINE HCL 1:1000 1ML 0.5 MG, CLONIDINE HCL 0.08 MG, KETORO... INJ ONE
[2019-10-05 07:55] VITALS: BP 112/76
== END | disposition home or self-care (01) ==
LOC: OR 05:43
PROVIDERS: ATTEND Internal Medicine Gastroenterology
DX: K29.50 Unspecified chronic gastritis without bleeding (principal); K31.5 Obstruction of duodenum; K31.84 Gastroparesis; K44.9 Diaphragmatic hernia without obstruction or gangrene; K21.9 Gastro-esophageal reflux disease without esophagitis; R63.4 Abnormal weight loss; Z71.3 Dietary counseling and surveillance; I10 Essential (primary) hypertension; E66.3 Overweight; I45.10 Unspecified right bundle-branch block; I69.998 Other sequelae following unspecified cerebrovascular disease; R25.1 Tremor, unspecified; F41.9 Anxiety disorder, unspecified; F32.9 Major depressive disorder, single episode, unspecified; Z88.0 Allergy status to penicillin; Z91.041 Radiographic dye allergy status; Z01.810 Encounter for preprocedural cardiovascular examination; Z01.812 Encounter for preprocedural laboratory examination; Z11.59 Encounter for screening for other viral diseases; Z79.02 Long term (current) use of antithrombotics/antiplatelets; Z68.27 Body mass index [BMI] 27.0-27.9, adult; Z85.6 Personal history of leukemia
CPT/HCPCS: 36415; 43239; 85025; 87635; 93005; J2250; J2704